=== PATIENT | male | born 2000 | race Caucasian/White ===

== ENCOUNTER 2019-03-30 20:57 | Emergency (ER) | payer MEDICAID ==
[~2019-03-30] VITALS: Ht 190.5 cm; Wt 100.7 kg
[~2019-03-30 20:57] MED LIST: ABILIFY; ARIP30TA4 PO; LISD70CA5 PO
--- NOTE | 2019-03-30 21:21 | NUR ---
STEP MOM AT BEDSIDE WITH MD. STEP-MOTHER LEFT 3 PHONE NUMBERS FOR PT SO HE CAN REACH OUT TO THEM. PAPER IN STUCK TO DOOR JAM IN PT ROOM AND PT IS AWARE. ROOM IS SECURED AND PT IS IN BED, IN GOWN WITH POSSESSIONS PLACED IN LOCKER WITH LABEL.
[2019-03-30 21:53] LABS: AMPHETAMINE SCREEN, URINE Negative (Negative); BARBITURATE SCREEN, URINE Negative (Negative); BENZODIAZEPINE SCREEN, URINE Negative (Negative); CANNABINOID SCREEN, URINE Negative (Negative); COCAINE SCREEN, URINE Negative (Negative); METHADONE SCREEN, URINE Negative (Negative); OPIATE SCREEN, URINE Negative (Negative)
[2019-03-30 22:00] LABS: BASOPHILS # (AUTO) 0.04 x10^3/uL (0-0.3); BASOPHILS % (AUTO) 1 % (0-1); EOSINOPHILS # (AUTO) 0.12 x10^3/uL (0-0.8); EOSINOPHILS % (AUTO) 1 % (1-7); LYMPHOCYTES % (AUTO) 27 % (22-44); MD NO; MEAN CORPUSCULAR HEMOGLOBIN 25.6 pg (27.5-34.5); MEAN CORPUSCULAR HGB CONC 31.8 g/dL (33.2-36.2); MEAN CORPUSCULAR VOLUME 80.4 fL (81-97); MEAN PLATELET VOLUME 8.3 fL (7.4-10.4); MONOCYTES # (AUTO) 0.71 x10^3/uL (0-1.4); MONOCYTES % (AUTO) 8 % (2-9); NEUTROPHILS # (AUTO) 5.42 x10^3/uL (1.8-8.0); NEUTROPHILS % (AUTO) 63 % (42-75); PLATELET COUNT 289 x10^3/uL (130-400); RED BLOOD COUNT 5.42 x10^6/uL (4.38-5.82); RED CELL DISTRIBUTION WIDTH 16.4 % (9.4-14.8)
--- NOTE | 2019-03-30 22:08 | NUR ---
RECEIVED REPORT FROM FARHAN GIL. ASSUMING CARE AT THIS TIME.
[2019-03-30 22:11] LABS: ALBUMIN 3.7 g/dL (3.4-5.0); ANION GAP 6 mmol/L (5-15); CALCIUM 8.7 mg/dL (8.5-10.1); CHLORIDE 108 mmol/L (98-107); CREATININE 0.99 mg/dL (0.7-1.3); SALICYLATE LEVEL < 1.7 mg/dL (2.8-20.0)
--- NOTE | 2019-03-30 22:28 | NUR ---
TP RN: [facility] [place] [place]. RN SPOKE WITH [facility], [facility] STATES THEY WOULD MOST LIKELY BE ABLE TO ACCEPT HIM TONIGHT.
--- NOTE | 2019-03-30 22:32 | NUR ---
PT RESTING COMFORTABLY ON GURNEY. NADN. ROOM SECURE. PT IN DIRECT SIGHT IN SITTER,.
--- NOTE | 2019-03-30 23:47 | NUR ---
SPOKE WITH KATERINA GIL AT [facility] AND GAVE REPORT. RECEIVING DR CHISHOLM. NAZIA NOTIFIED TO ARRANGE [facility].
--- NOTE | 2019-03-31 00:10 | NUR ---
PATIENT DECLINED TO BE TRANSFERRED TO [facility]. WILL WAIT FOR [facility] TO COME DOWN AND ASSESS THE PATIENT.
--- NOTE | 2019-03-31 00:58 | NUR ---
[facility] AT [facility]EDSIDE.
--- NOTE | 2019-03-31 02:01 | NUR ---
PATIENT SLEEPING, RESPIRATION UNLABORED. SITTER AT THE DOOR.
--- NOTE | 2019-03-31 02:31 | NUR ---
Met with pt, reviewed case with psychiatrist. Will need to discuss with UR nurse in morning before accepting pt to 3E.
--- NOTE | 2019-03-31 02:53 | NUR ---
report to stefanie moy at [facility]. states he will call us back with information regarding admission.
--- NOTE | 2019-03-31 03:43 | NUR ---
TP RN: Carrie from [facility] informed RN that they need to verify insurance before pt is able to be accepted and admitted to the Behavioral Health Unit.
--- NOTE | 2019-03-31 04:12 | NUR ---
Max Gonzalez Called back with accepting . Dr. Sheila Tuttle.
--- NOTE | 2019-03-31 06:11 | NUR ---
[facility] HERE TO TAKE PATIENT TO [facility]. S
[2019-03-31 06:16] VITALS: BP 123/76
== END 2019-03-31 06:19 ==
LOC: ED 21:42
DX: F32.9 Major depressive disorder, single episode, unspecified (principal); R45.851 Suicidal ideations
CPT/HCPCS: 36415; 80048; 80307; 82040; 85025; 99285

== ENCOUNTER 2019-08-20 21:38 | Emergency (ER) | payer MEDICARE, MEDICAID ==
[~2019-08-20] VITALS: Ht 190.5 cm; Wt 102.8 kg
[2019-08-20 21:59] VITALS: BP 148/88
[2019-08-20] MEDS ORDERED: LIDOCAINE-MPF 1%, 5ML ONE (22:16)
--- NOTE | 2019-08-20 22:22 | NUR ---
PT PRESENTING FOR LAC TO LEFT PALM. PA ORDERS RECEIVED. TECH AT BEDSIDE TO IRRIGATE WOUND
[2019-08-20] MEDS ORDERED: LIDOCAINE-MPF 1%, 5ML INFIL ONE (22:30)
--- NOTE | 2019-08-20 22:44 | NUR ---
PA AT BEDSIDE FOR SUTURES
== END 2019-08-20 23:05 | disposition home or self-care (01) ==
LOC: ED 22:23
DX: S61.412A Laceration without foreign body of left hand, initial encounter (principal); Z72.9 Problem related to lifestyle, unspecified; W26.0XXA Contact with knife, initial encounter; Y93.89 Activity, other specified; Y92.410 Unspecified street and highway as the place of occurrence of the external cause; Y99.8 Other external cause status
CPT/HCPCS: 12042; 99284